=== PATIENT | male | born 1995 | race Caucasian/White ===

== ENCOUNTER → 2017-12-09 | Outpatient (CLI) | payer BC, OTHER ==
--- NOTE | 2017-12-09 12:40 | DIAGNOSTIC IMAGING REPORT ---
TESTICULAR ULTRASOUND HISTORY: TESTICULAR SWELLING COMPARISON: None. FINDINGS: Right testis: 4.5 x 2.6 x 2.4 cm. There are no intratesticular masses. Normal color flow. No hydrocele. The epididymis is unremarkable. Left testis: 5.2 x 2.7 x 2.9 cm. There are no intratesticular masses. Normal color flow. Large hydrocele demonstrating a volume of 66 cc. The epididymis is unremarkable. Incidental note is made of an appendix testis. 4 mm cyst at the mediastinum, likely within the rete testis. IMPRESSION: 1. Large left hydrocele. 2. Normal right testis. 3. A 4 mm cyst at the mediastinum of the left testis likely related to the rete testis. Therefore, this is of doubtful significance. Electronically signed by: Khang Garrido M.D. 12/09/2017 12:38 PM Dictated Date/Time: 12/09/2017 12:34 PM
== END | disposition home or self-care (01) ==
LOC: C.ULTR 11:20
PROVIDERS: ATTEND Orthopaedic Surgery Sports Medicine
DX: N50.89 Other specified disorders of the male genital organs (principal); N43.3 Hydrocele, unspecified; N44.2 Benign cyst of testis